=== PATIENT | female | born 1965 | race Caucasian/White ===

== ENCOUNTER 2022-01-04 20:52 | Emergency (ER) | payer BC, SELFPAY ==
[2022-01-04] VITALS (23 sets, daily range): BP systolic 180–227; BP diastolic 88–113; PULSE 72–97; RESP 11–22; TEMP 36.8; O2SAT 93–98; BMI 25.7
--- NOTE | 2022-01-04 21:19 | CTR_ITS ---
PROCEDURE INFORMATION: Exam: CT Head Without Contrast Exam date and time: 01/04/2022 9:31 PM Age: 56 years old Clinical indication: Patient HX: C/O dizziness. BP 220 systolic. ; Additional info: Dizzy, high blood pressure TECHNIQUE: Imaging protocol: Computed tomography of the head without contrast. Radiation optimization: All CT scans at this facility use at least one of these dose optimization techniques: automated exposure control; mA and/or kV adjustment per patient size (includes targeted exams where dose is matched to clinical indication); or iterative reconstruction. COMPARISON: No relevant prior studies available. RADIATION DOSE METRICS: Total DLP (mGy-cm): 836.62 FINDINGS: Brain: Normal. No hemorrhage. Unremarkable white matter. No mass effect. Cerebral ventricles: No ventriculomegaly. Paranasal sinuses: Visualized sinuses are unremarkable. No fluid levels. Mastoid air cells: Visualized mastoid air cells are well aerated. Bones/joints: Unremarkable. No acute fracture. Soft tissues: Unremarkable. CT/CT head wo con* [id number] IMPRESSION: No acute intracranial abnormality.
--- NOTE | 2022-01-04 21:19 | XRR_ITS ---
PROCEDURE INFORMATION: Exam: XR Chest Exam date and time: 01/04/2022 9:42 PM Age: 56 years old Clinical indication: Chest wall pain; Additional info: Chest pain TECHNIQUE: Imaging protocol: XR of the chest. Views: 1 view. COMPARISON: No relevant prior studies available. FINDINGS: Lungs: Unremarkable. No consolidation. Pleural spaces: Unremarkable. No pleural effusion. No pneumothorax. Heart/Mediastinum: Unremarkable. No cardiomegaly. Bones/joints: Unremarkable. XR/XR chest 1V portable [id number] IMPRESSION: No acute findings.
--- NOTE | 2022-01-04 21:20 | ECG_ITS ---
[facility] Test Date: 2022-01-04 Pat Name: Viridiana Brennan Department: Room: Gender: Female Weaver Hand: : 1965 Requested By: Bob Galdamez Order Number: [id number] Angie MD: Fernandez Andujar M.D. Measurements Intervals [place] Rate: 75 P: 74 AR: 141 QRS: 60 QRSD: 82 T: 76 QT: 349 QTc: 391 Interpretive Statements SINUS RHYTHM Compared to ECG 01/04/2022 21:08:18 No significant changes Electronically Signed On 01-05-2022 18:15:48 CDT by Fernandez Andujar M.D. [id number]
--- NOTE | 2022-01-04 21:22 | ED_ITS ---
HPI - Chest Pain General: Chief Complaint: Chest Pain Stated Complaint: Chest Pains\ Arm Pain Time Seen by Provider: 01/04/22 21:19 History of Present Illness: 56-year-old female comes in today with complaints of substernal chest discomfort. Patient also reports some numbness in the left arm. Patient has a history of high blood pressure but has been without medication for the last 3 years. Patient is a regular pack-a-day smoker. Patient reports no routine medications or supplements. Patient reports the pain has been persistent throughout the day. Patient has got more anxious this evening due to the discomfort which has worsened her pain. Patient did take 181 mg aspirin prior to arrival to the ER. MD complaint: chest pain Onset (ago): hour(s) Timing of current episode: constant Prior episodes: No Pain location: substernal Pain radiation: left arm Pain scale (0-10): 7 Relieving factors: nothing Exacerbating factors: nothing Associated symptoms: Deny dyspnea, fever(s), nausea or vomiting Review of Systems General: Reports: 10 or more systems reviewed and unremarkable except in HPI and below Const: Denies: fever(s) Eyes: Denies: change in vision Card: Reports: chest pain Resp: Denies: dyspnea GI: Denies: nausea or vomiting Musc: Denies: neck pain Skin/Breast: Denies: rash Neuro: Reports: numbness in extremities Psych: Reports: anxiety Physical Exam Const: COMMON NORMALS: alert HENMT: COMMON NORMALS: atraumatic HEAD & SCALP: atraumatic MOUTH: Normal oral and palatal mucosa present THROAT: posterior oropharynx normal Neck/C-Spine: COMMON NORMALS: full ROM Chest: COMMONS NORMALS: normal palpation of entire chest wall Resp: COMMON NORMALS: normal respiratory effort and clear to auscultation bilaterally AUSCULTATION: clear to auscultation bilaterally Cardio: COMMON NORMALS: regular rate and regular rhythm RATE: regular rate RHYTHM: regular rhythm GI: INSPECTION: Yes normal to inspection Extremity: COMMON NORMALS: normal to inspection Neuro: SENSORIUM/ORIENTATION: Yes alert Psych: COMMON NORMALS: cooperative Skin: COMMON NORMALS: no rashes or lesions noted GENERAL SKIN EXAM: no rashes or lesions noted Course ED course: 2323, blood pressure is down to 178 systolic. Patient reports relief of pain and discomfort. Laboratory values were unremarkable. Chest x- ray was normal. Reviewed exam with patient with recommendations for follow-up. Patient reported understanding agreed to plan. Vital Signs: Vital signs: Vital Signs Temperature 98.3 F 01/04/22 21:11 Pulse Rate 81 01/04/22 23:00 Respiratory Rate 18 01/04/22 23:00 Blood Pressure 183/99 01/04/22 23:00 Pulse Oximetry 93 01/04/22 23:00 MDM - Chest Pain Medical Decision Making 56-year-old female comes in today with complaints of chest discomfort and left arm numbness. On exam patient has no focal neural deficits. Patient is alert and oriented. Lungs are clear to auscultation. Vital signs are normal except for an elevation in blood pressure at 215 systolic. Differential diagnosis includes ACS, stroke syndrome, anxiety, uncontrolled hypertension. CT of the head was negative for any intracranial bleeding. Chest x-ray was normal. CBC and CMP were unremarkable. Baseline troponin was 7, BNP was 28. Patient had resolution of symptoms after blood pressure was brought down to 178 systolic. Patient was given 1/2 mg of lorazepam for further comfort. Reviewed exam with patient stated that blood pressure was most likely the cause for her discomfort. It was uncontrolled causing this discomfort which could lead to heart attack or CHF if not properly treated. Patient reported understanding. We will start patient with lisinopril 10 mg and 12-1/2 of hydrochlorothiazide daily. Patient was given 1 dose of 10 mg lisinopril in the ER. Lab Data : 01/04/22 22:00 01/04/22 22:32 Radiology Impressions Chest X-Ray 01/04/22 21:19 IMPRESSION: No acute findings. Head CT 01/04/22 21:19 IMPRESSION: No acute intracranial abnormality. Laboratory Results WBC 6.3 10^3/uL (4.0-10.0) 01/04/22 22:00 RBC 4.68 10^6/uL (4.1-5.3) 01/04/22 22:00 Hgb 16.0 g/dL (11.5-15.3) H 01/04/22 22:00 Hct 45.8 % (37.0-47.0) 01/04/22 22:00 MCV 97.9 fl (81-99) 01/04/22 22:00 MCH 34.2 pg (28.0-34.0) H 01/04/22 22:00 MCHC 34.9 g/dL (30.0-36.0) 01/04/22 22:00 RDW 11.4 % (12.1-15.1) L 01/04/22 22:00 Plt Count 184 10^3/cmm (130-400) 01/04/22 22:00 MPV 12.0 fL (7.4-10.4) H 01/04/22 22:00 Neut % (Auto) 61.4 % 01/04/22 22:00 Lymph % (Auto) 26.2 % 01/04/22 22:00 [place] % (Auto) 11.0 % 01/04/22 22:00 Eos % (Auto) 0.6 % 01/04/22 22:00 Baso % (Auto) 0.6 % 01/04/22 22:00 Neut # (Auto) 3.89 10^3/uL (1.8-7.7) 01/04/22 22:00 Lymph # (Auto) 1.7 10^3/uL (0.8-4.8) 01/04/22 22:00 [place] # (Auto) 0.7 10^3/uL (0.2-0.9) 01/04/22 22:00 Eos # (Auto) 0.0 10^3/uL (0.0-0.8) 01/04/22 22:00 Baso # (Auto) 0.0 10^3/uL (0.0-0.1) 01/04/22 22:00 Nucleated RBC % (auto) 0 % 01/04/22 22:00 Nucleated RBCs # 0.0 /100WBC 01/04/22 22:00 Sodium 135 mmol/L (136-145) L 01/04/22 22:32 Potassium 4.2 mmol/L (3.5-5.1) 01/04/22 22:32 Chloride 99 mmol/L (98-107) 01/04/22 22:32 Carbon Dioxide 23 mmol/L (22-29) 01/04/22 22:32 Anion Gap 17.2 (5-19) 01/04/22 22:32 BUN 8 mg/dL (6-20) 01/04/22 22:32 Creatinine 0.5 mg/dL (0.5-0.9) 01/04/22 22:32 GFR Calculation 128.1 mL/min (90-130) 01/04/22 22:32 Glucose 131 mg/dL (65-115) H 01/04/22 22:32 Calculated Osmolality 280 mOsm/kg (285-295) L 01/04/22 22:32 Calcium 8.6 mg/dL (8.5-10.5) 01/04/22 22:32 Total Bilirubin 0.4 mg/dL (0.15-1.2) 01/04/22 22:32 AST 53 U/L (0-32) H 01/04/22 22:32 ALT 90 U/L (0-33) H 01/04/22 22:32 Alkaline Phosphatase 76 IU/L (35-105) 01/04/22 22:32 Troponin T Baseline 7 ng/L (0-10) 01/04/22 22:32 NT-Pro-B Natriuret Pep 28 pg/mL (0-125) 01/04/22 22:32 Total Protein 6.9 g/dL (6.6-8.7) 01/04/22 22:32 Albumin 4.8 g/dL (3.5-5.2) 01/04/22 22:32 Globulin 2.1 g/dL (1.3-4.6) 01/04/22 22:32 Lipase 48 U/L (13-60) 01/04/22 22:32 EKG Data EKG 1: EKG interpretation date: 01/04/22 EKG interpretation time: 21:15 Interpretation: EKG shows a sinus rhythm with a regular rate at [address] elevation or ectopy is noted. Computer interprets as a normal EKG. No prior exam is available for comparison. Discharge Plan Discharge Patient Disposition: Home Clinical Impression: Chest pain Qualifiers: Chest pain type: unspecified Qualified Code(s): R07.9 - Chest pain, unspecified Hypertension Qualifiers: Hypertension type: unspecified Qualified Code(s): I10 - Essential (primary) hypertension Condition: Stable Prescriptions: New lisinopril-hydrochlorothiazide 10-12.5 mg tablet 1 tab PO DAILY Qty: 14 0RF Discharge Orders: Discharge ED (Routine); Ordered 01/04/22 Ordered By: Bob Hernandez Discharge Diet: Usual diet Discharge Activity: Increase activity as tolerated Patient Instructions: Hypertension (ED) Activity Restrictions/Additional Instructions: Home and rest. Take medication as directed daily. Follow-up with primary care in 1 week for recheck. Return to ER for new concerns or worsening symptoms. Coding Level of Care Code ED Senior Fire Protection Engineer for Tonya Fwsandip Exam Comprehensive
[2022-01-04] MEDS: nitroglycerin 1 gm/inch oint Pkt 0.5 INCH TOPICAL (21:46)
[2022-01-04] MEDS: LORazepam 0.5 mg Tablet PO (21:47)
[2022-01-04] MEDS: aspirin 81 mg Chew Tablet 162 MG PO (21:55)
[2022-01-04 22:09] LABS: Basophils % 0.6 %; Eosinophils % 0.6 %; Hematocrit 45.8 % (37.0-47.0); Lymphocytes # 1.7 10^3/uL (0.8-4.8); Lymphocytes % 26.2 %; Mean Corpuscular HGB Conc 34.9 g/dL (30.0-36.0); Mean Corpuscular Hemoglobin 34.2 pg (28.0-34.0); Mean Corpuscular Volume 97.9 fl (81-99); Monocytes # 0.7 10^3/uL (0.2-0.9); Neutrophils # 3.89 10^3/uL (1.8-7.7); Neutrophils % 61.4 %; Nucleated Red Blood Cells % 0 %; Platelet Count 184 10^3/cmm (130-400); Red Blood Count 4.68 10^6/uL (4.1-5.3); Red Cell Distribution Width 11.4 % (12.1-15.1); White Blood Count 6.3 10^3/uL (4.0-10.0)
[2022-01-04 23:07] LABS: Troponin(5th) Baseline 7 ng/L (0-10)
[2022-01-04 23:15] LABS: Alanine Aminotransferase 90 U/L (0-33); Albumin Level 4.8 g/dL (3.5-5.2); Alkaline Phosphatase 76 IU/L (35-105); Anion Gap 17.2 (5-19); Aspartate Amino Transferase 53 U/L (0-32); Blood Urea Nitrogen 8 mg/dL (6-20); Calcium 8.6 mg/dL (8.5-10.5); Carbon Dioxide 23 mmol/L (22-29); Chloride 99 mmol/L (98-107); Globulin 2.1 g/dL (1.3-4.6); Glomerular Filtration Rate 128.1 mL/min (90-130); Glucose 131 mg/dL (65-115); Lipase 48 U/L (13-60); Osmolality Calculated 280 mOsm/kg (285-295); Potassium 4.2 mmol/L (3.5-5.1); Sodium 135 mmol/L (136-145); Total Bilirubin 0.4 mg/dL (0.15-1.2); Total Protein 6.9 g/dL (6.6-8.7)
[2022-01-04 23:17] LABS: NT Pro B Type Natriuretic Pept 28 pg/mL (0-125)
--- NOTE | 2022-01-04 23:20 | ECG_ITS ---
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 Measurements Intervals [place] Rate: 99 P: 82 MA: 147 QRS: 69 QRSD: 86 T: 84 QT: 336 QTc: 433 Interpretive Statements SINUS RHYTHM No previous ECG available for comparison Electronically Signed On 01-05-2022 18:21:52 CDT by Fernandez Andujar M.D. [id number]
[2022-01-04] MEDS: lisinopril 10 mg Tablet PO (23:31)
== END 2022-01-04 23:34 | disposition home or self-care (01) ==
PROVIDERS: Emergency Provider Nurse Practitioner Family
DX: R07.9 Chest pain, unspecified (principal); I10 Essential (primary) hypertension; Z91.128 Patient's intentional underdosing of medication regimen for other reason; F17.210 Nicotine dependence, cigarettes, uncomplicated
CPT/HCPCS: 70450; 71045; 80053; 83690; 83880; 84484; 85025; 93005; 96374; 99284